=== PATIENT | female | born 1945 | race Caucasian/White ===

== ENCOUNTER 2018-07-26 09:16 | Emergency (ER) | payer OTHER, MEDICAID ==
[~2018-07-26] VITALS: Ht 149.9 cm; Wt 29.9 kg
[2018-07-26 09:16] VITALS: BP 81/33
--- NOTE | 2018-07-26 09:17 | NUR ---
PT BIBA ALS TO BED 10
--- NOTE | 2018-07-26 09:18 | NUR ---
Patient being evaluated by physician at bedside.
--- NOTE | 2018-07-26 09:30 | NUR ---
BS CHECKED 37. ERMD MADE AWARE
[2018-07-26] MEDS ORDERED: NACL 0.9% 1,500 ML IV SCH (09:34)
[2018-07-26] MEDS ORDERED: LEVOFLOXACIN 500 MG/D5W PREMIX 100 ML IV ONE (09:35)
[2018-07-26] MEDS ORDERED: PIPERACILLIN/TAZOBACTAM 3.375 GM in DEXT 5% MINI-BAG PLUS 50 ML IV ONE (09:35)
--- NOTE | 2018-07-26 09:38 | NUR ---
D50 1 AMP. GIVEN IVP
[2018-07-26] MEDS ORDERED: DEXTROSE 50% 50 ML SYR IVP ONE ×3 (09:39→13:21)
--- NOTE | 2018-07-26 09:49 | NUR ---
three attempts made for abg unable to obtain at this time, suzanne chi and dr. plummer notified
--- NOTE | 2018-07-26 10:00 | NUR ---
barb ambrocio initiated at 38 degrees celcius---warm fluids ns hung to gravity. at bedside
--- NOTE | 2018-07-26 10:28 | NUR ---
XRAY AT BEDSIDE
[2018-07-26 10:32] LABS: BASOPHILS % (AUTO) 0.1 % (0.0-2.0); EOSINOPHILS % (AUTO) 0.1 % (0.0-4.0); HEMATOCRIT 23.9 % (36-48); HEMOGLOBIN 7.3 g/dL (12.0-16.0); LYMPHOCYTES # (AUTO) 0.6 K/uL (2.5-16.5); LYMPHOCYTES % (AUTO) 9.3 % (20.5-51.1); MEAN CORPUSCULAR HEMOGLOBIN 29 pg (27-31); MEAN CORPUSCULAR HGB CONC 30 g/dL (33-37); MEAN CORPUSCULAR VOLUME 94.5 fL (80-94); MONOCYTES # (AUTO) 0.1 K/uL (0.8-1.0); MONOCYTES % (AUTO) 1.4 % (1.7-9.3); NEUTROPHILS # (AUTO) 5.8 K/uL (1.8-7.7); NEUTROPHILS % (AUTO) 89.1 % (42.2-75.2); PLATELET COUNT (AUTO) 119 K/uL (140-450); RED BLOOD CELL COUNT(AUTO) 2.53 MIL/uL (4.20-5.40); RED CELL DISTRIBUTION WIDTH 17.5 % (11.6-13.7); WHITE BLOOD COUNT (AUTO) 6.6 K/uL (4.8-10.8)
--- NOTE | 2018-07-26 10:34 | NUR ---
labs and cxr completed at bedside
[2018-07-26 11:16] LABS: SODIUM SERUM 167 mmol/L (136-145)
[2018-07-26 11:17] LABS: ANION GAP 28.1 (8-16); CARBON DIOXIDE 10.2 mmol/L (21-32); CHLORIDE 137 mmol/L (98-107); POTASSIUM 8.3 mmol/L (3.5-5.1)
[2018-07-26 11:18] VITALS: BP 95/38
[2018-07-26 11:18] LABS: ASPARTATE AMINOTRANSFERASE 31 U/L (15-37); CREATININE 17.1 mg/dL (0.6-1.3); GLUCOSE 224 mg/dL (74-106); TOTAL BILIRUBIN 0.3 mg/dL (0.0-1.0)
[2018-07-26 11:19] LABS: ALBUMIN 1.7 g/dL (3.4-5.0)
--- NOTE | 2018-07-26 11:21 | NUR ---
PT'S SON AND DAUGHTER AT BEDSIDE
--- NOTE | 2018-07-26 11:41 | NUR ---
EKG DONE AT BEDSIDE
[2018-07-26 11:50] LABS: PROTHROMBIN TIME 12.7 secs (10.8-13.4)
[2018-07-26 11:55] LABS: UREA NITROGEN, BLOOD 262 mg/dL (7-18)
--- NOTE | 2018-07-26 11:57 | NUR ---
NO URINE OUTPUT OF YET; MD KAUR
[2018-07-26] MEDS ORDERED: PIPERACILLIN/TAZOBACTAM 3.375 GM VIAL IV ONE (12:02)
[2018-07-26] MEDS ORDERED: DEXTROSE 25% 10 ML SYR IVP ONE (12:15)
[2018-07-26] MEDS ORDERED: SODIUM POLYSTYRENE 15 GM/60 ML UDBTL PR ONE (12:15)
[2018-07-26] MEDS ORDERED: INSULIN REGULAR, HUMAN 100 UNIT/ML VIAL IVP ONE (12:15)
[2018-07-26] MEDS ORDERED: DEXT 5% / NACL 0.45% 1,000 ML IV ONE (12:15)
[2018-07-26] MEDS ORDERED: SODIUM POLYSTYRENE 15 GM/60 ML UDBTL PO ONE (12:20)
[2018-07-26] MEDS ORDERED: CYAN100T65 PO (12:58)
[2018-07-26] MEDS ORDERED: ATOR40TA PO (12:58)
[2018-07-26] MEDS ORDERED: METO25TA PO (12:58)
[2018-07-26] MEDS ORDERED: MEMA5TAB PO (12:58)
[2018-07-26] MEDS ORDERED: LEVO0.155 PO (12:58)
[2018-07-26] MEDS ORDERED: ASPI-1718 PO (12:58)
[2018-07-26] MEDS ORDERED: TICA90TA PO (12:58)
[2018-07-26] MEDS ORDERED: VITD1000 PO (12:58)
[2018-07-26] MEDS ORDERED: MONT10TA35 PO (12:58)
[2018-07-26] MEDS ORDERED: QUET25TA PO (12:58)
[2018-07-26] MEDS ORDERED: BECL10.62 IH (13:02)
--- NOTE | 2018-07-26 13:10 | NUR ---
CXR FOR NGT PLACEMENT COMPLETED--AWAITING MD MUÑOZ FOR USE
--- NOTE | 2018-07-26 13:30 | NUR ---
AGONAL RESPIRATIONS NOTED---HR DECREASED TO 50'S; PT WITH MOVEMENTS THREADY PULSE. SPOKE WITH PT'S SON AND DAUGHTER BOTH AGREED TO DNR MD SPOKE WITH FAMILY ABOUT OPTION TO INTUBATE BUT THEY BOTH AGREED NO INTUBATION.
--- NOTE | 2018-07-26 13:40 | NUR ---
CALLED TIME OF EXPIRATION 1340HRS TODAY; FAMILY REMAIN AT BEDSIDE. MONITOR OFF AND ALL FLUIDS DC
--- NOTE | 2018-07-26 13:56 | NUR ---
ONE [employer] GAVE OKAY TO RELEASE THEY WILL NOT PURSUE.
--- NOTE | 2018-07-26 14:25 | NUR ---
FAMILY PROVIDED LIST OF MORTUARY.
--- NOTE | 2018-07-26 14:25 | NUR ---
SPOKE TO PAYTON DAVILA AT [facility], NOTIFIED OF PATIENTS PASSING.
--- NOTE | 2018-07-26 14:33 | NUR ---
CALLED FOR COLLEGE ASSOCIATE; CALL BACK EXPECTED
--- NOTE | 2018-07-26 14:37 | NUR ---
DR. REEVES, PRIMARY MD OF PATIENT CALLED BACK. MADE AWARE OF PATIENTS PASSING
--- NOTE | 2018-07-26 15:51 | NUR ---
ASHLEY FROM [facility] CALLED FOR BODY DREDGE LEVER OPERATOR IN 2 HOURS. PRIMARY NURSE MADE AWARE
--- NOTE | 2018-07-26 16:23 | NUR ---
made contact with pattern keeper number to inquire of eta; none provided
--- NOTE | 2018-07-26 17:37 | NUR ---
spoke with Cara with shape carver's office---unable to give guess to time of when shape carver may make contact but did inform we were next for contact. verified correct number
--- NOTE | 2018-07-26 20:00 | NUR ---
REHABILITATION PSYCHOLOGIST CALLED. WILL CALL BACK WHEN AVAILABLE.
--- NOTE | 2018-07-26 20:17 | NUR ---
SPOKE WITH SENG NELSON, SENIOR EMBEDDED SOFTWARE ENGINEER. PT HAS BEEN RELEASED. ID #: [id number].
--- NOTE | 2018-07-26 20:25 | NUR ---
SPOKE WITH TIGRE AT [facility]. ETA FOR [employer]ION [employer]GAN[employer]ER IS 1.5-2 HOURS.
--- NOTE | 2018-07-26 20:36 | NUR ---
PER JESSE, ARTIFICIAL GLASS EYE MAKER, PT CAN GO TO ROOM 126 WAITING FOR MORTUARY PICK-UP
--- NOTE | 2018-07-26 21:03 | NUR ---
PT MOVED TO RM. 126. AWAITING TOP TAPER MACHINE FROM MORTUARY.
--- NOTE | 2018-07-26 22:02 | NUR ---
RAYA TELLEZ PICKED UP PATIENT.
== END 2018-07-26 13:40 | disposition expired ==
LOC: MED 09:16
DX: N17.9 Acute kidney failure, unspecified (principal); R57.1 Hypovolemic shock; E86.0 Dehydration; E87.5 Hyperkalemia; E16.2 Hypoglycemia, unspecified; F03.90 Unspecified dementia, unspecified severity, without behavioral disturbance, psychotic disturbance, mood disturbance, and anxiety; E07.9 Disorder of thyroid, unspecified; I10 Essential (primary) hypertension; Z79.82 Long term (current) use of aspirin; Z79.899 Other long term (current) drug therapy
CPT/HCPCS: 36415; 71045; 80053; 82550; 82553; 83605; 83874; 83880; 84484; 85025; 85610; 85730; 87040; 93005; 96361; 96365; 96366; 96368; 96375; 96376; 99291; J1815; J1956; J2543; J7030; J7060; Q0092; 99285